=== PATIENT | female | born 1955 | race Caucasian/White ===

== ENCOUNTER 2019-10-04 22:37 | Inpatient (IN) | payer OTHER ==
[~2019-10-04] VITALS: Ht 157.5 cm; Wt 81.4 kg
[2019-10-04 23:36] LABS: URINE BILIRUBIN - DIPSTICK NEGATIVE (NEGATIVE); URINE BLOOD DIPSTICK LARGE (NEGATIVE); URINE COLOR YELLOW; URINE GLUCOSE - DIPSTICK NEGATIVE (NEGATIVE); URINE KETONE NEGATIVE (NEGATIVE); URINE LEUK ESTERASE NEGATIVE (NEGATIVE); URINE NITRITE - DIPSTICK NEGATIVE (Negative); URINE PH 5.5 (4.5-8.0); URINE PROTEIN - DIPSTICK 100 mg/dL (NEG-TRACE); URINE UROBILINOGEN - DIPSTICK 0.2 E.U./dL (0.2)
[2019-10-04 23:38] LABS: URINE RBC 25-50 RBC/hpf (0-5)
[2019-10-04 23:39] LABS: URINE EPITHELIAL CELLS MODERATE EPI/hpf (0-FEW)
[2019-10-04 23:58] LABS: HEMATOCRIT 42.9 % (37.0-47.0); HEMOGLOBIN 14.3 g/dl (12.0-16.0); IMMATURE GRANULOCYTES 0.3 % (0.0-5.0); MEAN CELL VOLUME 90.3 fL CALC (80.0-100.0); MEAN CORPUSCULAR HGB 30.1 pG CALC (26.0-32.0); MEAN CORPUSCULAR HGB CONC 33.3 g/L CALC (32.0-36.0); NEUT# 12.69 thou/uL (2.00-7.15); RED BLOOD COUNT 4.75 mill/uL (4.20-5.60); RED CELL DISTRI WIDTH 13.2 % (11.5-15.5)
[2019-10-05 00:15] LABS: ALBUMIN 4.6 g/dL (3.2-5.0); ALKALINE PHOSPHATASE 92 u/l (38-126); ANION GAP 11 (6-22 (CALC)); BILIRUBIN, TOTAL 0.7 mg/dL (0.0-1.4); BUN 15 mg/dL (8-23); BUN/CREATININE RATIO 22 (12-20 (CALC)); CARBON DIOXIDE 31 mmol/l (22-30); CHLORIDE 100 mmol/l (95-108); CREATININE 0.7 mg/dL (0.5-1.0); GFR > 60 ML/MIN (>=60 (CALC)); GFR FOR AFR.AMER. > 60 ML/MIN (>=60 (CALC)); POTASSIUM 3.6 mmol/l (3.5-5.1); SGOT/AST 23 u/l (9-36); SODIUM 139 mmol/l (137-146); TOTAL PROTEIN 8.1 g/dL (6.3-8.2)
[2019-10-05] MEDS ORDERED: LISINOPRIL5 MG PO (00:18)
[2019-10-05] MEDS ORDERED: NORVASC5 M1 PO (00:19)
[2019-10-05] MEDS ORDERED: LIPITOR10 M1 PO (00:19)
[2019-10-05] MEDS ORDERED: METOPROLOL50 M1 PO (00:19)
[2019-10-05 03:00] VITALS: BP 144/68
[2019-10-05 06:34] LABS: HEMATOCRIT 39.6 % (37.0-47.0); HEMOGLOBIN 13.1 g/dl (12.0-16.0); IMMATURE GRANULOCYTES 0.8 % (0.0-5.0); MEAN CELL VOLUME 91.2 fL CALC (80.0-100.0); MEAN CORPUSCULAR HGB 30.2 pG CALC (26.0-32.0); MEAN CORPUSCULAR HGB CONC 33.1 g/L CALC (32.0-36.0); NEUT# 14.49 thou/uL (2.00-7.15); RED BLOOD COUNT 4.34 mill/uL (4.20-5.60); RED CELL DISTRI WIDTH 13.2 % (11.5-15.5)
[2019-10-05 07:45] VITALS: BP 133/58
[2019-10-05 12:00] VITALS: BP 135/68
[2019-10-05 15:30] VITALS: BP 154/60
[2019-10-05] MEDS ORDERED: LOPRESSOR50 M2 PO (15:44)
[2019-10-05 19:00] VITALS: BP 140/72
[2019-10-06 00:17] VITALS: BP 146/78
[2019-10-06 04:31] VITALS: BP 124/65
[2019-10-06 04:54] LABS: HEMATOCRIT 39.5 % (37.0-47.0); HEMOGLOBIN 12.9 g/dl (12.0-16.0); MEAN CELL VOLUME 92.5 fL CALC (80.0-100.0); MEAN CORPUSCULAR HGB 30.2 pG CALC (26.0-32.0); MEAN CORPUSCULAR HGB CONC 32.7 g/L CALC (32.0-36.0); RED BLOOD COUNT 4.27 mill/uL (4.20-5.60); RED CELL DISTRI WIDTH 13.5 % (11.5-15.5)
[2019-10-06 05:09] LABS: ANION GAP 12 (6-22 (CALC)); BUN 16 mg/dL (8-23); BUN/CREATININE RATIO 37 (12-20 (CALC)); CARBON DIOXIDE 27 mmol/l (22-30); CHLORIDE 105 mmol/l (95-108); CREATININE 0.4 mg/dL (0.5-1.0); GFR > 60 ML/MIN (>=60 (CALC)); GFR FOR AFR.AMER. > 60 ML/MIN (>=60 (CALC)); MAGNESIUM 2.1 mg/dL (1.6-2.3); POTASSIUM 4.1 mmol/l (3.5-5.1); SODIUM 140 mmol/l (137-146)
[2019-10-06 08:29] VITALS: BP 133/73
[2019-10-06 10:35] VITALS: BP 134/68
[2019-10-06 14:37] VITALS: BP 121/68
[2019-10-06 19:10] VITALS: BP 146/76
[2019-10-07 00:20] VITALS: BP 129/71
[2019-10-07 03:42] VITALS: BP 135/79
[2019-10-07 07:40] VITALS: BP 145/86
[2019-10-07 10:20] VITALS: BP 141/68
[2019-10-07] MEDS ORDERED: PREDNISONE10 MG PO (12:05)
[2019-10-07] MEDS ORDERED: LEVAQUIN750 MG PO (12:07)
[2019-10-07] MEDS ORDERED: BIOTUSSIN PO (12:07)
[2019-10-07 15:51] VITALS: BP 145/73
[2019-10-07 19:58] VITALS: BP 148/82
[2019-10-08 04:00] VITALS: BP 158/77
[2019-10-08 07:40] VITALS: BP 151/82
[2019-10-08 09:18] VITALS: BP 151/82
[2019-10-08] MEDS ORDERED: IPRATROPIU0.5 MG/3 M NEB (12:48)
== END 2019-10-08 13:38 | disposition home or self-care (01) | DRG 193 ==
LOC: ED 22:37 → ED-I 10-05 01:32 → ED 10-05 01:46 → MS2 10-05 01:47
PROVIDERS: Emergency Medicine; Nurse Practitioner Family; ADMIT Internal Medicine; ATTEND Internal Medicine
DX: J18.9 Pneumonia, unspecified organism (principal); J96.21 Acute and chronic respiratory failure with hypoxia; J43.9 Emphysema, unspecified; N95.0 Postmenopausal bleeding; I10 Essential (primary) hypertension; E78.5 Hyperlipidemia, unspecified; F17.210 Nicotine dependence, cigarettes, uncomplicated
CPT/HCPCS: J1650